=== PATIENT | male | born 1975 | race Caucasian/White ===

== ENCOUNTER 2019-06-20 22:33 | Emergency (ER) | payer SELFPAY ==
[2019-06-20 22:51] VITALS: BP 145/93; PULSE 78; RESP 13; TEMP 36.5; O2SAT 99
--- NOTE | 2019-06-20 23:12 | ECG_ITS ---
Measurements Intervals [place] Rate: 73 P: 24 NE: 150 QRS: -5 QRSD: 108 T: 25 QT: 411 QTc: 455 Interpretive Statements SINUS RHYTHM BORDERLINE R WAVE PROGRESSION, ANTERIOR LEADS BORDERLINE ECG Electronically Signed On 06-21-2019 7:52:13 [employer] by Cj Glez D.O.
[2019-06-20 23:49] LABS: Basophils Absolute Auto 0.06 K/mm3 (0.00-0.10); Basophils Percent Auto 1.1 % (0.0-1.0); Eosinophils Absolute Auto 0.29 K/mm3 (0.02-0.50); Eosinophils Percent Auto 5.2 % (1.0-6.0); Hematocrit 40.6 % (40.0-54.0); Hemoglobin 14.9 g/dL (14.0-18.0); Immature Granulocyte Absolute 0.01 K/mm3 (0.00-0.00); Immature Granulocyte Percent A 0.2 % (0.0-0.0); Lymphocytes Absolute Auto 1.61 K/mm3 (1.10-4.50); Lymphocytes Percent Auto 28.9 % (18.0-42.0); Mean Corpuscular HGB Conc 36.7 g/dL (32.0-36.0); Mean Corpuscular Hemoglobin 31.2 pg (27.0-31.0); Mean Corpuscular Volume 85.1 fL (78.0-102.0); Mean Platelet Volume 9.7 fl (8.7-11.0); Monocytes Absolute Auto 0.49 K/mm3 (0.10-0.90); Monocytes Percent Auto 8.8 % (2.0-11.0); Neutrophils Absolute Auto 3.1 K/mm3 (1.7-7.2); Neutrophils Percent Auto 55.8 % (50.0-70.0); Platelet Count Result 245 K/mm3 (150-420); Red Blood Count 4.77 M/mm3 (4.70-6.10); Red Cell Distribution Width 11.3 % (11.6-14.4); White Blood Count 5.6 K/mm3 (4.8-10.8)
--- NOTE | 2019-06-20 23:56 | ED.GENADULT ---
HPI - General Adult General Chief complaint: Headache Stated complaint: headache, high blood pressure Source: patient Mode of arrival: ambulatory History of Present Illness HPI narrative: Kervin is a 43-year-old male that presented to the emergency department with concerns of high blood pressure chest pain and headache that he had had earlier in the day. He works as a nurse. While at work he found himself becoming fatigued having some chest pain and headache. He took his blood pressure and it was 220/120. It was lower on manual recheck but was still significantly elevated. As he had not seen a doctor in some time, felt weak and had high blood pressures he felt like he should be evaluated 3 came to the emergency department. After coming to the emergency department his chest pain has resolved and his headache was very mild he was concerned of the symptoms. He currently denies any chest pain and and only mild headache. Currently he has no shortness of breath, cold sweats, and never had any near-syncope or vomiting. Related Data Home Medications Medication Instructions Recorded Confirmed No Home Medications 06/20/19 06/20/19 Allergies Allergy/AdvReac Type Severity Reaction Status Date / Time Penicillins Allergy Intermediate Rash Unverified 06/24/12 11:49 infliximab Allergy Mild Verified 06/24/12 11:49 Review of Systems Constitutional: Constitutional: Denies chills, Reports fatigue and Denies fever(s) Eyes: Eyes: Reports no additional eye complaints ENT: Reports system reviewed and no additional complaints, except as documented Cardiovascular: Cardiovascular: Reports as per HPI Respiratory: Respiratory: Denies cough and Denies dyspnea Gastrointestinal: Gastrointestinal: Denies diarrhea, Reports nausea and Denies vomiting Musculoskeletal: Musculoskeletal: Reports no additional musculoskeletal complaints Integumentary/Breasts: Skin/Breast: Reports system reviewed and no additional complaints, except as docu Neurologic: Reports system reviewed and no additional complaints, except as documented Psychiatric: Psychiatric: Reports no additional psychiatric complaints [facility] Past Medical History Medical History Hypertension Psoriatic arthritis Tobacco abuse Exam Const: General: no acute distress and alert; No confusion Orientation/consciousness: patient oriented x3 HENMT: Head: normal to inspection Eyes: Conjunctivae: conjunctivae normal Pupils: Equal, round and reactive pupils present Neck: Neck: normal visual inspection Chest: Chest palpation & inspection: normal inspection of the chest Resp: Effort & Inspection: normal respiratory effort Auscultation: clear to auscultation bilaterally Cardio: Rate: regular rate Rhythm: regular rhythm Heart sounds: no murmurs GI: GI Palp: Yes Soft to palpation, No Tenderness to palpation present (GI) and No Guarding due to palpation present (GI) Skin: General skin exam: normal color Rashes: no rashes Neuro: General: oriented to person, oriented to place, oriented to time, patient oriented x3, moves all extremities, no focal motor deficits, CN's II-XI intact bilaterally and other ( normal [id number], symmetrical strength, normal gait, normal cognitio) Extrem: General: normal to inspection Psych: Mental Status: mental status grossly normal Course Course Emergency Course: Andrew was seen and evaluated. while his blood pressure was fine in the ER he did report a wildly elevated blood pressure at work which is concerning as he works as a nurse. For this reason we will work him up for hypertensive urgency. ordered CBC, BMP EKG, BNP and troponin. he continued to be asymptomatic with no altered mental status, chest pain, shortness of breath the reported he had been making urine. When I went him to tell him about his labs he was sleeping. Upon awakening he said his headache was much better. At
[2019-06-21 00:13] LABS: BNP < 5.0 pg/mL (0-100)
[2019-06-21 00:16] LABS: Alanine Aminotransferase 27 U/L (16-63); Albumin Level 3.8 g/dL (3.4-5.0); Alkaline Phosphatase 67 U/L (46-116); Anion Gap 14.8 mmol/L (7-16); Aspartate Amino Transferase 17 U/L (15-37); Bilirubin,Total 0.3 mg/dL (0.00-1.00); Blood Urea Nitrogen 6 mg/dL (7-18); Calcium 8.7 mg/dL (8.5-10.1); Carbon Dioxide 26 mmol/L (21-32); Chloride 103 mmol/L (98-108); Estimated CRCL calculation 131 ml/min; Estimated Glomerular Filt Rate > 60; Glucose 119 mg/dL (70-99); Osmolality Calculated 288 mOsm/kg (285-295); Potassium 3.8 mmol/L (3.5-5.1); Sodium 140 mmol/L (136-145); Total Protein 6.9 g/dL (6.4-8.2); Troponin I < 0.02 ng/mL (0.00-0.056)
[2019-06-21 00:48] VITALS: BP 136/90; PULSE 67; RESP 20; O2SAT 97
== END 2019-06-21 01:00 | disposition home or self-care (01) ==
PROVIDERS: Emergency Provider Family Medicine
DX: I16.0 Hypertensive urgency (principal)
CPT/HCPCS: 36415; 80053; 83880; 84443; 84484; 85025; 93005; 99282; 99284

== ENCOUNTER 2021-02-17 07:26 | Emergency (ER) | payer SELFPAY ==
--- NOTE | ~2021-02-17 | CT_ITS ---
EXAMINATION: CT abdomen pelvis w con EXAM DATE: 02/17/2021 08:42 INDICATION: Right lower quadrant pain TECHNIQUE: Spiral CT of the abdomen and pelvis was performed following intravenous injection of 100 m L Omnipaque 350. Axial, coronal and sagittal images of the abdomen and pelvis were reviewed. The do se-length product (DLP) for this examination was 1266.89 mGy-cm. The exposure was tailored according to patient size (auto mA exposure control), and iterative reconstruction (ASIR) was used as addition al dose reduction technique. Comparison is made to prior examination from 07/24/2015. FINDINGS: The liver, spleen, adrenal glands and pancreas are unremarkable. There are cholecystectomy clips. Portal and splenic veins are patent. Kidneys enhance symmetrically. There is no hydronephr osis. Small region right renal cortical scarring. The prostate is unremarkable. The bladder is unrem arkable. There is no retroperitoneal or pelvic lymphadenopathy. There is mild scattered arterioscl erotic disease. Patient has had prior laparotomy. The appendix is normal. The stomach and small bowel are unremarkable. There is expected amount of c olonic stool. No free intraperitoneal gas. The heart is normal in size. There are no pericardial or pleural effusions. The lung bases are unremarkable. The bones are unremarkable. IMPRESSION: 1. No acute intra-abdominal findings. Reviewed, dictated and finalized at location G.
[2021-02-17 07:32] VITALS: BP 178/120; PULSE 80; RESP 18; TEMP 36.5; O2SAT 100
[2021-02-17] MEDS: SODIUM CHLORIDE 0.9% IV 1,000 ML 999 ML IV CONT (07:58)
[2021-02-17 08:06] LABS: Basophils Absolute Auto 0.1 K/mm3 (0.0-0.1); Eosinophils Absolute Auto 0.3 K/mm3 (0-0.3); Eosinophils Percent Auto 5.2 % (0-4.4); Hematocrit 43.4 % (42.0-52.0); Hemoglobin 15.5 g/dL (14.0-18.0); Immature Granulocyte Absolute 0.01 K/mm3 (0.00-0.031); Immature Granulocyte Percent A 0.2 % (0-0.5); Lymphocytes Absolute Auto 1.41 K/mm3 (0.9-3.2); Lymphocytes Percent Auto 22.8 % (18.3-44.2); Mean Corpuscular HGB Conc 35.7 g/dl (32-36); Mean Corpuscular Hemoglobin 31.1 pg (26-34); Mean Platelet Volume 9.6 fl (7.4-10.4); Monocytes Absolute Auto 0.4 K/mm3 (0.1-0.6); Monocytes Percent Auto 6.6 % (2.6-8.5); Neutrophils Percent Auto 64.2 % (45.5-73.1); Platelet Count Result 234 k/mm3 (150-375); Red Blood Count 4.99 M/mm3 (4.6-6.20); Red Cell Distribution Width 11.8 % (11.5-14.5); White Blood Count 6.2 K/mm3 (4.5-10.0)
[2021-02-17 08:18] LABS: Add Urine Microscopic? NO; Appearance Urine Clear (Clear); Bacteria Urine Trace /hpf; Bilirubin Urine Negative (Negative); Blood Urine Negative (Negative); Color Urine Straw (Yellow); Glucose Urine UA Negative (Negative); Ketones Urine Negative (Negative); Leukocyte Esterase Ur Negative LEU/UL (Negative); Nitrate Urine Negative (Negative); Protein Urine Negative (Negative); RBC Urine 0-2 /hpf (0-2); Urobilinogen Urine Negative mg/dL (<2.0); WBC Urine 0-3 /hpf
[2021-02-17 08:21] LABS: Alanine Aminotransferase 33 U/L (4-50); Albumin Level 4.5 g/dL (3.5-5.1); Alkaline Phosphatase 67 U/L (38-126); Anion Gap 4 mmol/L (8-16); Aspartate Amino Transferase 31 U/L (17-59); Bilirubin,Total 0.8 mg/dL (0.2-1.3); Blood Urea Nitrogen 7 mg/dL (9-20); Carbon Dioxide 29 mmol/L (22-30); Chloride 104 mmol/L (98-107); Estimated CRCL calculation 137 ml/min; Estimated Glomerular Filt Rate > 60; Glucose 129 mg/dL (65-110); Lipase 39 U/L (23-300); Potassium 3.6 mmol/L (3.4-5.0); Sodium 137 mmol/L (137-145)
--- NOTE | 2021-02-17 08:38 | PC.NURSE ---
Pt to CT.
--- NOTE | 2021-02-17 08:39 | ED.ABDPAIN ---
HPI - Abdominal Pain General Chief Complaint: Abdominal Pain Stated Complaint: abd pain Time Seen by Provider: 02/17/21 07:48 Source: patient Mode of arrival: ambulatory Limitations: no limitations History of Present Illness HPI narrative: Patient presents with right lower quadrant pain started last night. Constant, no radiation, no aggravating or relieving factors. Patient denies fever, chills, nausea, vomiting, diarrhea, constipation, urinary symptoms, recent trauma. History of incisional hernia repair, mid abdomen. Related Data Home Medications Medication Instructions Recorded Confirmed citalopram mg 02/17/21 metoprolol succinate 25 mg PO 02/17/21 Allergies Allergy/AdvReac Type Severity Reaction Status Date / Time Penicillins Allergy Intermediate Rash Unverified 02/17/21 07:51 infliximab Allergy Mild Unknown Verified 02/17/21 07:51 [facility] Past Medical History Medical History (Updated 02/17/21 @ 10:15 by Dianna Estrada MD) Hypertension Psoriatic arthritis Tobacco abuse Exam Narrative: General appearance: Well-developed, well-nourished Skin: Normal color Head: Normocephalic, nontraumatic Eyes: Clear conjunctiva ENT: Oropharynx normal, ears normal, nose normal Neck: Supple, nontender Chest and respiratory: Airway patent, no respiratory distress, no accessory muscle use Heart: Regular rate/rhythm Abdomen: Soft, mild tenderness right lower quadrant, no guarding or rebound, no organomegaly, quiet bowel sounds Vascular: Normal peripheral pulses, normal capillary refill. Musculoskeletal: Normal range of motion, nontender back Neurologic: Alert and oriented ?3, [employer] is normal as tested, no gross motor deficit Course Course Emergency Course: Stable Vital Signs Vital signs: Vital Signs Temperature 36.5 C 02/17/21 07:32 Pulse Rate 80 02/17/21 07:32 Respiratory Rate 18 02/17/21 07:32 Blood Pressure 178/120 H 02/17/21 07:32 Pulse Oximetry 100 02/17/21 07:32 Temperature 36.5 C 02/17/21 07:32 Pulse Rate 74 02/17/21 09:40 Respiratory Rate 18 02/17/21 09:40 Blood Pressure 167/105 H 02/17/21 09:40 Pulse Oximetry 98 02/17/21 09:40 MDM - Abdominal Pain MDM Narrative Medical decision making narrative: Patient presents with right lower quadrant pain. Differential diagnosis as below. Labs, CT abdomen pelvis with IV contrast, IV fluid started Differential Diagnosis Differential diagnosis: Likely abdominal pain, acute appendicitis, calculus of kidney, constipation and diverticulitis Lab Data Result diagrams: 02/17/21 07:52 02/17/21 07:52 Labs: Lab Results 02/17/21 02/17/21 02/17/21 Range/Units 07:52 07:52 08:01 WBC 6.2 (4.5-10.0) K/mm3 RBC 4.99 (4.6-6.20) M/mm3 Hgb 15.5 (14.0-18.0) g/dL Hct 43.4 (42.0-52.0) % MCV 87.0 (80-100) fl MCH 31.1 (26-34) pg MCHC 35.7 (32-36) g/dl RDW 11.8 (11.5-14.5) % Plt Count 234 (150-375) k/mm3 MPV 9.6 (7.4-10.4) fl Immature Gran % (Auto) 0.2 (0-0.5) % Neut % (Auto) 64.2 (45.5-73.1) % Lymph % (Auto) 22.8 (18.3-44.2) % [place] % (Auto) 6.6 (2.6-8.5) % Eos % (Auto) 5.2 H (0-4.4) % Baso % (Auto) 1.0 (0.2-1.2) % Lymph # (Auto) 1.41 (0.9-3.2) K/mm3 [place] # (Auto) 0.4 (0.1-0.6) K/mm3 Eos # (Auto) 0.3 (0-0.3) K/mm3 Baso # (Auto) 0.1 (0.0-0.1) K/mm3 Abs Immat Gran (auto) 0.01 (0.00-0.031) K/mm3 Absolute Neuts (auto) 4.0 (1.3-6.7) K/mm3 Absolute Nucleated RBC 0.0 (0.0-0.012) K/mm3 Nucleated RBC % 0.0 (0.0-0.2) % Sodium 137 (137-145) mmol/L Potassium 3.6 (3.4-5.0) mmol/L Chloride 104 (98-107) mmol/L Carbon Di
[2021-02-17 09:20] LABS: Specific Grav Ur 1.004 (1.001-1.035)
[2021-02-17 09:40] VITALS: BP 167/105; PULSE 74; RESP 18; O2SAT 98
--- NOTE | 2021-02-17 10:00 | PC.NURSE ---
ERPA to bedside for pt assessment. When speaking with pt, pt disclosed to PA that he has been having suicidal thoughts today. Pt disclosed to PA that he has been having thoughts to get ahold of a gun and hurt himself. Pt moved to room 15 for safety. Pt placed in paper scrubs and belongings secured at nurses station. Pt placed on 1:1 observation. Pt agreeable to plan for medical clearance and crisis evaluation.
== END 2021-02-17 10:33 | disposition home or self-care (01) ==
PROVIDERS: Emergency Provider Emergency Medicine; PCP Internal Medicine
DX: R10.31 Right lower quadrant pain (principal); I10 Essential (primary) hypertension; L40.50 Arthropathic psoriasis, unspecified
CPT/HCPCS: 36415; 74177; 80053; 81003; 83690; 85025; 96360; 99284; J7030; Q9967

== ENCOUNTER 2022-02-05 15:10 | Emergency (ER) | payer SELFPAY ==
--- NOTE | ~2022-02-05 | XR_ITS ---
EXAMINATION: XR hand RT min 3V INDICATION: Right hand pain, initial encounter TECHNIQUE: Four views of the right hand are obtained. COMPARISON: None available FINDINGS: There are acute transverse distal neck fractures of the fourth and fifth metacarpals. No ad ditional fracture is identified. There is soft tissue swelling near the fractures. IMPRESSION: 1. Acute distal neck fractures of the fourth and fifth metacarpals. Reviewed, dictated and finalized at location A.
--- NOTE | ~2022-02-05 | XR_ITS ---
EXAMINATION: XR wrist RT min 3V INDICATION: Right wrist pain TECHNIQUE: Four views of the right wrist are obtained. COMPARISON: None available FINDINGS: There are transverse distal neck fractures of the fourth and fifth metacarpals. No wrist fr acture is identified. Bone alignment at the wrist is normal. IMPRESSION: 1. No acute osseous abnormality of the wrist. 2. Transverse distal neck fractures of the fourth and fifth metacarpals. Reviewed, dictated and finalized at location A.
[2022-02-05 15:12] VITALS: BP 155/90; PULSE 87; RESP 16; TEMP 36.4; O2SAT 100
--- NOTE | 2022-02-05 16:02 | ED.UPPEXIN ---
HPI - Extremity Injury (Upper) General Chief Complaint: Extremity Injury, Upper Stated Complaint: broken right hand? Time Seen by Provider: 02/05/22 15:35 History of Present Illness HPI narrative: 46-year-old male presents the emergency room for evaluation of right hand pain. Patient states that he was attempting to avoid tripping over his dog when he struck his hand on the refrigerator door. Patient complaining of pain to his right hand over the fourth and fifth metacarpals. Related Data Home Medications Medication Instructions Recorded Confirmed citalopram 40 mg tablet mg 02/17/21 metoprolol succinate 50 mg 25 mg PO 02/17/21 tablet,extended release 24 hr Allergies Allergy/AdvReac Type Severity Reaction Status Date / Time infliximab Allergy Mild Unknown Verified 02/05/22 15:12 Review of Systems Review of Systems: CONSTITUTIONAL: Denies fever, chills, or sweats. EYES: Denies visual changes, redness, or discharge. ENT: Denies rhinorrhea, congestion, sore throat, or otalgia. CARDIOVASCULAR: Denies chest pain, palpitations, or edema. RESPIRATORY: Denies cough or dyspnea. GASTROINTESTINAL: Denies abdominal pain, nausea, vomiting, or diarrhea. GENITOURINARY: Denies dysuria or hematuria. SKIN: Denies rash or itching. MUSCULOSKELETAL: Reports right hand pain NEUROLOGIC: Denies headache, numbness, dizziness, or weakness. PSYCHIATRIC: Denies anxiety or depression. [facility] Past Medical History Medical History (Updated 02/05/22 @ 16:05 by Juvencio Reveles, JAIMIE) Hypertension Psoriatic arthritis Tobacco abuse Exam Narrative: GENERAL: Well-appearing, well-nourished, no physical limitations, and in no acute distress. HEAD: Normocephalic, atraumatic. EYES: Conjunctivae normal, PERRLA and EOMI. CHEST: Clear to auscultation. No respiratory distress. No wheezes rales or rhonchi. No tenderness. HEART: Regular rate and rhythm. No murmur heard. Normal peripheral pulses. EXTREMITIES: Right hand: +TTP and STS to the 4th/5th metacarpals. Limited range of motion due to pain. Neurovascular is intact distally. SKIN: Warm, dry, no rash. No noted wounds NEURO: No focal deficits. Alert and oriented x3. MAEW. CN's II-XI intact bilaterally, normal gait PSYCH: Cooperative. Normal mood and affect. Course Vital Signs Vital signs: Vital Signs Temperature 36.4 C L 02/05/22 15:12 Pulse Rate 87 02/05/22 15:12 Respiratory Rate 16 02/05/22 15:12 Blood Pressure 155/90 H 02/05/22 15:12 Pulse Oximetry 100 02/05/22 15:12 Temperature 36.4 C L 02/05/22 15:12 Pulse Rate 87 02/05/22 15:12 Respiratory Rate 16 02/05/22 15:12 Blood Pressure 155/90 H 02/05/22 15:12 Pulse Oximetry 100 02/05/22 15:12 Discharge Plan Discharge Clinical Impression: Boxer's fracture Patient Disposition: Home, Self-Care Condition: Stable Instructions: Antibiotic Form, Boxer Fracture (ED) Prescriptions: New ibuprofen 800 mg tablet 800 mg PO TID Qty: 21 0RF No Action citalopram 40 mg tablet metoprolol succinate 50 mg tablet extended release 24 hr 25 mg PO dicyclomine 20 mg tablet 20 mg PO QID Qty: 20 0RF Follow-up/Referrals: [place],Chris Erazo MD [Primary Care Provider] - Víctor Mauro MD [Physician] - Time of Disposition: 16:06
== END 2022-02-05 17:23 | disposition home or self-care (01) ==
LOC: ANHED 16:34
PROVIDERS: Emergency Provider Nurse Practitioner Family; PCP Nurse Practitioner Family
DX: S62.334A Displaced fracture of neck of fourth metacarpal bone, right hand, initial encounter for closed fracture (principal); S62.336A Displaced fracture of neck of fifth metacarpal bone, right hand, initial encounter for closed fracture; I10 Essential (primary) hypertension; L40.50 Arthropathic psoriasis, unspecified; F17.200 Nicotine dependence, unspecified, uncomplicated; W22.8XXA Striking against or struck by other objects, initial encounter
CPT/HCPCS: 29125; 73110; 73130; 99284

== ENCOUNTER 2022-11-28 09:45 | Emergency (ER) | payer BC, SELFPAY ==
[2022-11-28] VITALS (12 sets, daily range): BP systolic 147–164; BP diastolic 87–99; PULSE 52–80; RESP 12–17; TEMP 36.5; O2SAT 98–100
[2022-11-28 10:34] LABS: Strep Group A RT-PCR NOT DETECTED (Negative)
[2022-11-28] MEDS: LIDOCAINE HCL 2% VISC SOLN 15 ML UDC PO (11:02)
--- NOTE | 2022-11-28 12:13 | ED.GENADULT ---
HPI - General Adult General Chief complaint: Upper Respiratory Infection Stated complaint: Throat pain Time Seen by Provider: 11/28/22 10:32 History of Present Illness HPI narrative: Patient is a 47-year-old male who presents to the ER with sore throat. Ongoing for 2 days. Associated with gagging when laying down flat. No fevers or chills or sweats. He does have some sinus congestion. Denies cough or dyspnea. No known sick contacts. Related Data Home Medications Medication Instructions Recorded Confirmed citalopram 40 mg tablet mg 02/17/21 metoprolol succinate 50 mg 25 mg PO 02/17/21 tablet,extended release 24 hr Allergies Allergy/AdvReac Type Severity Reaction Status Date / Time infliximab Allergy Mild Unknown Verified 11/28/22 10:42 Review of Systems Review of Systems: All systems reviewed & are unremarkable except as noted in HPI and below Constitutional: Constitutional: Denies chills, Denies fatigue and Denies fever(s) ENT: Reports nasal congestion and Reports sore throat Cardiovascular: Cardiovascular: Denies chest pain, Denies rapid heart rate and Denies radiating jaw, neck or arm pain Respiratory: Respiratory: Denies cough, Denies dyspnea and Denies wheezing Gastrointestinal: Gastrointestinal: Denies abdominal pain, Denies nausea and Denies vomiting PMFSH Past Medical History Medical History (Updated 11/28/22 @ 12:17 by Joel Leong MD) Hypertension Psoriatic arthritis Tobacco abuse Surgical History Surgical History (Updated 11/28/22 @ 12:14 by Joel Leong MD) No pertinent past surgical history Exam Narrative: GENERAL: Well-appearing, well-nourished, and in no acute distress. HEAD: Normocephalic, atraumatic. ENT: Mucous membranes moist. Pharyngeal erythema to the posterior oropharynx without tonsillar hypertrophy or exudate. There is punctate ulcerations throughout the soft palate and over the uvula. Uvula mildly enlarged. NECK: Supple. CHEST: Clear to auscultation. No respiratory distress. HEART: Regular rate and rhythm. Normal peripheral pulses. EXTREMITIES: Normal range of motion. No edema. NEURO: Alert and oriented x3. PSYCH: Normal mood and affect. Course Course Emergency Course: Patient given Decadron for uvular inflammation. Patient felt to have a viral infection causing symptoms. Discussed conservative management. Patient also received some viscous lidocaine for his discomfort which has helped. Discharge home. Vital Signs Vital signs: Vital Signs Temperature 97.7 F 11/28/22 09:49 Pulse Rate 80 11/28/22 09:49 Respiratory Rate 12 11/28/22 09:49 Blood Pressure 151/99 H 11/28/22 09:49 Pulse Oximetry 99 11/28/22 09:49 Oxygen Delivery Room Air 11/28/22 09:49 Temperature 97.7 F 11/28/22 09:49 Pulse Rate 52 L 11/28/22 11:31 Respiratory Rate 13 11/28/22 11:31 Blood Pressure 164/94 H 11/28/22 11:31 Pulse Oximetry 99 11/28/22 11:31 Oxygen Delivery Room Air 11/28/22 09:49 Medical Decision Making Vital Signs Vital Signs: Vital Signs Temperature 97.7 F 11/28/22 09:49 Pulse Rate 80 11/28/22 09:49 Respiratory Rate 12 11/28/22 09:49 Blood Pressure 151/99 H 11/28/22 09:49 Pulse Oximetry 99 11/28/22 09:49 Oxygen Delivery Room Air 11/28/22 09:49 Temperature 97.7 F 11/28/22 09:49 Pulse Rate 52 L 11/28/22 11:31 Respiratory Rate 13 11/28/22 11:31 Blood Pressure 164/94 H 11/28/22 11:31 Pulse Oximetry 99 11/28/22 11:31 Oxygen Delivery Room Air 11/28/22 09:49 Lab Data Labs: Lab Results 11/28/22 Range/Units 10:04 Group A Strep (PCR) Not detected (Negative) Discharge Plan Discharge Clinical Impression: Acute herpangina, Uvulitis Patient Disposition: Home, Self-Care Condition: Stable Instructions: Hand, Foot, and Mouth Disease (ED), Uvulitis (ED) Additional Instructions: You have a viral infection causing discomfort in the
== END 2022-11-28 12:24 | disposition home or self-care (01) ==
PROVIDERS: Emergency Provider Emergency Medicine
DX: B08.5 Enteroviral vesicular pharyngitis (principal); K12.2 Cellulitis and abscess of mouth; I10 Essential (primary) hypertension; L40.50 Arthropathic psoriasis, unspecified
CPT/HCPCS: 87651; 99283; J8540

== ENCOUNTER 2022-12-29 15:06 | Emergency (ER) | payer BC, SELFPAY ==
[2022-12-29 15:20] VITALS: BP 174/113; PULSE 70; RESP 18; TEMP 36.2; O2SAT 100
--- NOTE | 2022-12-29 15:37 | ED.GENADULT ---
HPI - General Adult General Chief complaint: Extremity Injury, Upper Stated complaint: Pulled muscle in shoulder Time Seen by Provider: 12/29/22 15:30 Source: patient and RN notes reviewed Mode of arrival: ambulatory Limitations: no limitations History of Present Illness HPI narrative: Patient presents today complaining a left shoulder injury. 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 Reports he is having pain to the left side of his neck that extends to the left shoulder and into the left bicep. He is having some tingling in his left fingertips as well. Currently rates his pain 8/10 and has been taking Tylenol and ibuprofen with very mild relief. History of cirrhosis. Related Data Home Medications Medication Instructions Recorded Confirmed albuterol sulfate 90 mcg/actuation 2 inh inhalation DIRECTED 12/29/22 12/29/22 aerosol inhaler diltiazem HCl 120 mg 120 mg PO DIRECTED 12/29/22 12/29/22 capsule,extended release 24 hr metoprolol succinate 100 mg 100 mg PO DIRECTED 12/29/22 12/29/22 tablet,extended release 24 hr risankizumab-rzaa 150 mg/mL 150 mg subcut DIRECTED 12/29/22 12/29/22 subcutaneous pen injector (Skyrizi) Allergies Allergy/AdvReac Type Severity Reaction Status Date / Time infliximab Allergy Mild Unknown Verified 11/28/22 10:42 Review of Systems Review of Systems: CONSTITUTIONAL: Denies body aches, fever, chills, or sweats. EYES: Denies visual changes, redness, or discharge. ENT: Denies rhinorrhea, congestion, sore throat, or otalgia. CARDIOVASCULAR: Denies chest pain, palpitations, or edema. RESPIRATORY: Denies cough or dyspnea. GASTROINTESTINAL: Denies abdominal pain, nausea, vomiting, or diarrhea. GENITOURINARY: Denies dysuria or hematuria. SKIN: Denies rash, itching, or wounds. MUSCULOSKELETAL: + neck pain, shoulder pain NEUROLOGIC: Denies headache, numbness, tingling, or weakness. PSYCH: Denies depression or anxiety. [facility] Past Medical History Medical History (Updated 12/29/22 @ 15:51 by Daisy Johnson, [facility], ) Cirrhosis Hypertension Psoriatic arthritis Tobacco abuse Surgical History Surgical History No pertinent past surgical history Comments At time of signature, I have reviewed and agree with nursing past medical, surgical, social and family history unless otherwise noted. Please see nursing chart for further information. There is no relevant family history pertinent to the presenting complaint Exam Narrative: GENERAL: Well-appearing, well-nourished, and in no acute distress. Mild generalized skin palor. HEAD: Normocephalic, atraumatic. EYES: EOMI. No redness or drainage. Conjunctivae normal. ENT: Mucous membranes pink and moist. NECK: Normal AROM. Supple. No lymphadenopathy. Tenderness to the left cervical paraspinal muscles which extends to the left trapezius. CHEST: No respiratory distress. MUSCULOSKELETAL: No bony tenderness of the spine. EXTREMITIES: Left shoulder: Posterior and lateral shoulder tenderness that extends down or to the left bicep. Biceps strength is normal. No abnormal bicep bulging. Distal sensation intact. Capillary refill normal. Radial pulse normal. Full range of motion of the fingers. Shoulder range of motion is limited due to pain. SKIN: Warm, dry, no rash. Capillary refill normal. Normal skin turgor. NEURO: No focal deficits. Alert and oriented x3. Gait steady. PSYCH: Normal affect. No signs of depression or anxiety. Course Course Level of Care: Express Care Visit Medical Decision Making [facility] Narrative Medical decision making narrative: Prescriptions for methacarbamol, prednisone, and tramadol will be sent to pharmacy. No testing or imaging indicated at this time. Anticipatory guidance given. Differential Diagnosis Differential Diagnosis
[2022-12-29 16:00] VITALS: BP 154/82
== END 2022-12-29 16:00 | disposition home or self-care (01) ==
PROVIDERS: Emergency Provider Nurse Practitioner
DX: S46.912A Strain of unspecified muscle, fascia and tendon at shoulder and upper arm level, left arm, initial encounter (principal); S16.1XXA Strain of muscle, fascia and tendon at neck level, initial encounter; X50.0XXA Overexertion from strenuous movement or load, initial encounter; Y99.0 Civilian activity done for income or pay; K74.60 Unspecified cirrhosis of liver; I10 Essential (primary) hypertension; L40.50 Arthropathic psoriasis, unspecified
CPT/HCPCS: 99213; G0463

== ENCOUNTER 2023-11-05 13:01 | Emergency (ER) | payer SELFPAY ==
[2023-11-05 13:04] VITALS: BP 208/121; PULSE 122; RESP 18; TEMP 36.9; O2SAT 96
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
[2023-11-05 13:30] VITALS: BP 196/128; PULSE 94; RESP 20; O2SAT 97
== END 2023-11-05 13:57 | disposition home or self-care (01) ==
PROVIDERS: Emergency Provider Physician Assistant
DX: S01.01XA Laceration without foreign body of scalp, initial encounter (principal); I10 Essential (primary) hypertension; F17.200 Nicotine dependence, unspecified, uncomplicated; Y04.2XXA Assault by strike against or bumped into by another person, initial encounter
CPT/HCPCS: 12002; 99283